=== PATIENT | female | born 1995 | race Two or more races ===

== ENCOUNTER 2017-12-25 18:19 | Emergency (ER) | payer MEDICAID ==
[~2017-12-25] VITALS: Ht 149.9 cm; Wt 57.0 kg
[2017-12-25] MEDS ORDERED: ACETAMINOPHEN 500MG TABLET PO ONE (19:30)
[2017-12-25] MEDS ORDERED: ONDANSETRON 4MG ODT PO ONE (20:00)
[2017-12-25] MEDS ORDERED: IBUPROFEN 600MG TABLET PO ONE (22:15)
[2017-12-25 22:31] VITALS: BP 99/57
== END 2017-12-25 22:42 | disposition home or self-care (01) ==
LOC: ER 18:19
DX: S06.0X9A Concussion with loss of consciousness of unspecified duration, initial encounter (principal); S43.401A Unspecified sprain of right shoulder joint, initial encounter; W11.XXXA Fall on and from ladder, initial encounter; Y93.89 Activity, other specified; Y92.018 Other place in single-family (private) house as the place of occurrence of the external cause
CPT/HCPCS: 70450; 71046; 73030; 74176; 81025; 99284; Q0162